=== PATIENT | female | born 1940 | race Hispanic/Latino ===

== ENCOUNTER 2024-10-13 19:24 | Emergency (ER) | payer MEDICARE ==
[~2024-10-13] VITALS: Ht 152.4 cm; Wt 61.7 kg
[2024-10-13 19:30] VITALS: PULSE 84; RESP 18; TEMP 98.6
[2024-10-13] MEDS: SODIUM CHLORIDE 0.9% 1000ML 1,000 ML IV STA (20:15)
[2024-10-13] MEDS: ONDANSETRON HCL INJ 2MG/ML 2ML 2 MG/ML VIAL IV STA (20:15)
[2024-10-13 20:20] LABS: BASOPHILS % 0.5 % (0.0-1.0); EOSINOPHILS # (AUTO) 0.1 (0.0-0.4); EOSINOPHILS % 1.5 % (0.0-6.0); HEMATOCRIT 34.5 % (34.2-44.1); HEMOGLOBIN 11.6 g/dL (12.0-16.0); LYMPHOCYTES # (AUTO) 2.2 (1.0-3.2); LYMPHOCYTES % 26.1 % (18.0-39.1); MEAN CORPUSCULAR HEMOGLOBIN 31.3 pg (28-32); MEAN CORPUSCULAR HGB CONC 33.6 g/dL (31-35); MONOCYTES # (AUTO) 0.9 (0.2-0.8); MONOCYTES % 10.8 % (4.4-11.3); NEUTROPHILS # (AUTO) 5.1 (2.1-6.9); NEUTROPHILS % 60.9 % (38.7-80.0); PLATELET COUNT 231 x10e3/uL (140-360); RED BLOOD COUNT 3.71 x10e6/uL (3.6-5.1); RED CELL DISTRIBUTION WIDTH 12.6 % (11.7-14.4); WHITE BLOOD COUNT 8.39 x10e3/uL (4.8-10.8)
[2024-10-13 20:40] LABS: ALANINE AMINOTRANSFERASE 12 IU/L (0-55); ALBUMIN 3.8 g/dL (3.5-5.0); ALBUMIN/GLOBULIN RATIO 1.2 (0.8-2.0); ALKALINE PHOSPHATASE 70 IU/L (40-150); ANION GAP 15.6 mmol/L (8-16); BILIRUBIN,TOTAL 0.6 mg/dL (0.2-1.2); BLOOD UREA NITROGEN 17 mg/dL (7-26); BUN/CREATININE RATIO 11 (6-25); CALCIUM 9.4 mg/dL (8.4-10.2); CARBON DIOXIDE 25 mmol/L (22-29); CHLORIDE 100 mmol/L (98-107); CREATINE KINASE 49 IU/L (29-168); CREATININE, SERUM 1.48 mg/dL (0.57-1.11); EST GLOMERULAR FILTRATION RATE 35 ML/MIN (>=60); GLUCOSE 196 mg/dL (74-118); LIPASE 29 U/L (8-78); POTASSIUM 4.6 mmol/L (3.5-5.1); SODIUM 136 mmol/L (136-145); TOTAL PROTEIN 7.1 g/dL (6.5-8.1)
[2024-10-13 20:54] LABS: TROPONIN I < 0.001 ng/mL (0-0.300)
[2024-10-13 21:30] LABS: CLARITY,URINE CLEAR (CLEAR); COLOR,URINE COLORLESS (YELLOW); LEUKOCYTE ESTERASE ,URINE 1+ (NEGATIVE); NITRITE,URINE NEGATIVE (NEGATIVE); PH,URINE 7 (5 - 7)
[2024-10-13 21:31] LABS: BILIRUBIN,URINE NEGATIVE (NEGATIVE); GLUCOSE, URINE 2+ (NEGATIVE); KETONES,URINE NEGATIVE (NEGATIVE); PROTEIN,URINE DIPSTICK NEGATIVE (NEGATIVE); URINE UROBILINOGEN 0.2 mg/dL (0.2 - 1)
[2024-10-13 21:53] LABS: WBC,URINE (MAN) 21-50 /HPF (0-5)
[2024-10-13 21:54] LABS: BACTERIA,URINE MANY /HPF; RBC,URINE 0-5 /HPF (0-5)
[2024-10-13 21:55] LABS: EPITHELIAL CELLS,URINE FEW /LPF; RENAL EPITHELIAL CELLS,URINE MODERATE
[2024-10-13 22:01] LABS: CORONAVIRUS COVID-19 AG NEGATIVE (NEGATIVE); INFLUENZA A AG NEGATIVE (NEGATIVE); INFLUENZA B AG NEGATIVE (NEGATIVE)
[2024-10-13] MEDS ORDERED: DICYCLOMINE HCL10 MG PO (23:03)
[2024-10-13] MEDS ORDERED: BACTRIM DS TAB1 EACH PO (23:03)
[2024-10-13] MEDS ORDERED: PANTOPRAZOLE SO40 MG PO (23:19)
[2024-10-14 00:43] VITALS: BP 137/84; PULSE 84; RESP 18; TEMP 98.2; O2SAT 98
== END 2024-10-13 23:10 | disposition home or self-care (01) ==
LOC: ER 19:26
DX: R10.13 Epigastric pain (principal); I10 Essential (primary) hypertension; E11.65 Type 2 diabetes mellitus with hyperglycemia; E78.5 Hyperlipidemia, unspecified; Z11.52 Encounter for screening for COVID-19
CPT/HCPCS: 36415; 74177; 80053; 81001; 82550; 82948; 83690; 84484; 85025; 87428; 93005; 99284; J2405; J7030

== ENCOUNTER 2025-06-09 14:39 | Emergency (ER) | payer MEDICARE ==
[~2025-06-09] VITALS: Ht 162.6 cm; Wt 59.0 kg
[~2025-06-09 14:39] MED LIST: BACTRIM DS TAB1 EACH PO; DICYCLOMINE HCL10 MG PO; PANTOPRAZOLE SO40 MG PO
[2025-06-09 14:45] VITALS: PULSE 72; RESP 16; TEMP 98.2
[2025-06-09] MEDS ORDERED: SODIUM CHLORIDE 0.9% 1000ML 1,000 ML IV SCH (15:00)
[2025-06-09 15:24] LABS: BASOPHILS % 0.6 % (0.0-1.0); EOSINOPHILS % 1.5 % (0.0-6.0); LYMPHOCYTES % 38.2 % (18.0-39.1); MONOCYTES % 10.1 % (4.4-11.3); NEUTROPHILS % 49.5 % (38.7-80.0); RED CELL DISTRIBUTION WIDTH 12.7 % (11.7-14.4)
[2025-06-09 15:30] LABS: LEUKOCYTE ESTERASE ,URINE TRACE (NEGATIVE); PROTEIN,URINE DIPSTICK NEGATIVE (NEGATIVE)
[2025-06-09 15:31] LABS: URINE UROBILINOGEN 0.2 mg/dL (0.2 - 1)
[2025-06-09 15:35] LABS: EPITHELIAL CELLS,URINE RARE /LPF
[2025-06-09 15:48] LABS: EST GLOMERULAR FILTRATION RATE 36.0 ML/MIN (>=60)
[2025-06-09 16:44] VITALS: BP 139/71; PULSE 71; RESP 16; O2SAT 100
== END 2025-06-09 16:40 | disposition home or self-care (01) ==
LOC: ER 14:50
DX: R63.0 Anorexia (principal); R53.1 Weakness; I10 Essential (primary) hypertension
CPT/HCPCS: 36415; 71045; 80053; 81001; 84484; 85025; 93005; 99283